=== PATIENT | female | born 1980 | race Caucasian/White ===

== ENCOUNTER 2017-07-18 21:51 | Emergency (ER) | payer OTHER ==
[2017-07-18 22:18] VITALS: RESP 18; TEMP 97.9
[2017-07-18 23:15] LABS: URINE BILIRUBIN NEGATIVE (NEGATIVE); URINE BLOOD NEGATIVE (NEGATIVE); URINE GLUCOSE (UA) NEGATIVE (NEGATIVE); URINE LEUKOCYTE ESTERASE NEGATIVE Leu/uL (NEGATIVE); URINE NITRATE NEGATIVE (NEGATIVE); URINE PROTEIN NEGATIVE mg/dL (<30 mg/dL); URINE UROBILINOGEN 0.2 E.U./dL (<1 E.U./dL)
[2017-07-18 23:17] LABS: HCG,QUALITATIVE URINE NEGATIVE (NEGATIVE); URINE APPEARANCE CLEAR (CLEAR); URINE COLOR YELLOW (YELLOW)
[2017-07-18 23:21] LABS: HEMOGLOBIN 12.5 g/dL (12.0-16.0); MEAN CELL VOLUME 91.1 fl (80.0-105.0); MEAN CORPUSCULAR HEMOGLOBIN 30.8 pg (25.0-35.0); MEAN CORPUSCULAR HGB CONC 33.8 g/dl (31.0-37.0); MEAN PLATELET VOLUME 9.8 fl (7.0-11.0); RBC 4.06 10^6/uL (3.5-6.1); RED CELL DISTRIBUTION WIDTH 12.7 % (11.5-14.5); WHITE BLOOD COUNT 8.8 10^3/ul (4.5-11.0)
[2017-07-18 23:22] LABS: ALB/GLOB RATIO 1.3 (1.1-1.8); ALBUMIN 4.1 g/dL (3.0-4.8); ALT/SGPT 28 U/L (7-56); AST/SGOT 23 U/L (14-36); BLOOD UREA NITROGEN 11 mg/dL (7-21); CALCIUM 9.4 mg/dL (8.4-10.5); GFR AFRICAN-AMERICAN > 60; GFR NON-AFRICAN AMERICAN > 60; LIPASE 75 U/L (23-300)
--- NOTE | 2017-07-18 23:23 | ED PDOC ---
Arrival/HPI - General Chief Complaint: Female Genitourinary Time Seen by Provider: 07/18/17 22:31 Historian: Patient - History of Present Illness Narrative History of Present Illness (Text): 07/18/17 22:45 37 year old female, whose past medical history includes ovarian cyst s/p ovarian cyst removal, cholecystectomy, and intestinal obstruction, presents to the emergency department complaining of"ovarian pain". Patient states she has been having this discomfort for the past 3 months. She reports her last menstrual period a week ago. Patient denies any fever, chills, chest pain, shortness of breath, nausea, vomiting, diarrhea, urinary symptoms, vaginal discharge, back pain, neck pain, headache, dizziness, or any other complaints. Time/Duration: Other (3 month ) Symptom Onset: Gradual Symptom Course: Worsening Activities at Onset: Light Context: Home Past Medical History - Provider Review Nursing Documentation Reviewed: Yes - Genitourinary/Gynecological Hx Ovarian Cancer: Yes - Psychiatric Hx Substance Use: No Family/Social History - Physician Review Nursing Documentation Reviewed: Yes Family/Social History: No Known Family HX Smoking Status: y Hx Alcohol Use: No Hx Substance Use: No Allergies/Home Meds Allergies/Adverse Reactions: Allergies No Known Allergies Allergy (Verified 07/18/17 22:18) Review of Systems - Physician Review All systems were reviewed & negative as marked: Yes - Review of Systems Constitutional: absent: Fevers, Other (Chills) Respiratory: absent: SOB Cardiovascular: absent: Chest Pain Gastrointestinal: absent: Diarrhea, Nausea, Vomiting Genitourinary Female: Other ("Ovarian Pain"). absent: Dysuria, Frequency, Hematuria, Vaginal Discharge Musculoskeletal: absent: Back Pain, Neck Pain Neurological: absent: Headache, Dizziness Physical Exam Vital Signs Reviewed: Yes Vital Signs Temp Pulse Resp BP Pulse Ox 07/18/17 22:13 97.9 F 62 18 144/80 99 Temperature: Afebrile Blood Pressure: Normal Pulse: Regular Respiratory Rate: Normal Appearance: Positive for: Well-Appearing, Non-Toxic, Comfortable Pain Distress: None Mental Status: Positive for: Alert and Oriented X 3 - Systems Exam Head: Present: Atraumatic, Normocephalic Pupils: Present: PERRL Extroacular Muscles: Present: EOMI Conjunctiva: Present: Normal Mouth: Present: Moist Mucous Membranes Neck: Present: Normal Range of Motion Respiratory/Chest: Present: Clear to Auscultation, Good Air Exchange. No: Respiratory Distress, Accessory Muscle Use Cardiovascular: Present: Regular Rate and Rhythm, Normal S1, S2. No: Murmurs Abdomen: Present: Normal Bowel Sounds. No: Tenderness, Distention, Peritoneal Signs Back: Present: Normal Inspection Upper Extremity: Present: Normal Inspection. No: Cyanosis, Edema Lower Extremity: Present: Normal Inspection. No: Edema Neurological: Present: GCS=15, CN II-XII Intact, Speech Normal Skin: Present: Warm, Dry, Normal Color. No: Rashes Psychiatric: Present: Alert, Oriented x 3, Normal Insight, Normal Concentration Medical Decision Making ED Course and Treatment: 07/18/17 22:45 Impression: 37 year old female presents complaining of "Ovarian pain". Pt past medical history includes ovarian cyst s/p ovarian cyst removal. Plan: -- Labs -- Toradol -- HCG Qualit, Urinalysis -- Transvaginal US -- Reassess and disposition Progress Notes: EXAM: US Pelvis Complete, Transabdominal Dictated and Authenticated by: Addy Mendieta MD 07/18/2017 11:48 PM IMPRESSION: 1. Right ovarian lesion, indeterminate. Recommend nonemergent MRI for further characterization - Lab Interpretations Lab Results: 07/18/17 23:00 07/18/17 23:00 Lab Results 07/18/17 23:00: WBC 8.8, RBC 4.06, Hgb 12.5, Hct 37.0, MCV 91.1, MCH 30.8, MCHC 33.8, RDW 12.7, Plt Count 232, MPV 9.8 07/18/17 23:00: Sodium 140, Potassium 4.2, Chloride 102, Carbon Dioxide 31, Anion Gap 12, BUN 11, Creatinine 0.6 L, Est GFR ( Amer) > 60, Est GFR ( Non-Af Amer) > 60, Random Glucose 106, Calcium 9.4, Total Bilirubin 0.4, AST 23 , ALT 28, Alkaline Phosphatase 90, Total Protein 7.2, Albumin 4.1, Globulin 3.1 , Albumin/Globulin Ratio 1.3, Lipase 75 07/18/17 23:00: Urine Color Yellow, Urine Appearance Clear, Urine pH 8.0, Ur Specific [place] 1.015, Urine Protein Negative, Urine Glucose (UA) Negative, Urine Ketones Negative, Urine Blood Negative, Urine Nitrate Negative, Urine Bilirubin Negative, Urine Urobilinogen 0.2, Ur Leukocyte Esterase Negative, Urine HCG, Qual Negative I have reviewed the lab results: Yes - RAD Interpretation Radiology Orders: 07/18/17 22:44 TRANSVAGINAL [US] Stat - Medication Orders Current Medication Orders: Discontinued Medications Ketorolac Tromethamine (Toradol) 30 mg IVP ONCE ONE Stop: 07/18/17 23:12 Last Admin: 07/18/17 23:32 Dose: 30 mg MAR Pain Assessment Document 07/18/17 23:32 CNR (Rec: 07/18/17 23:32 CNR [id number]) Pain Reassessment Is this a pain reassessment? Yes Location Upper or Lower Lower Pain Location Body Site Abdomen Description Description Constant IVP Administration Document 07/18/17 23:32 CNR (Rec: 07/18/17 23:32 CNR [id number]) Charges for Administration # of IVP Administrations 1 Morphine Sulfate (Morphine) 4 mg IVP STAT STA Stop: 07/19/17 02:06 Last Admin: 07/19/17 02:11 Dose: 4 mg MAR Pain Assessment Document 07/19/17 02:11 CNR (Rec: 07/19/17 02:12 CNR [id number]) Pain Reassessment Is this a pain reassessment? Yes IVP Administration Document 07/19/17 02:11 CNR (Rec: 07/19/17 02:12 CNR [id number]) Charges for Administration # of IVP Administrations 1 - Scribe Statement The provider has reviewed the documentation as recorded by the Sheela Garzon Provider Scribe Attestation: All medical record entries made by the Scribmario were at my direction and personally dictated by me. I have reviewed the chart and agree that the record accurately reflects my personal performance of the history, physical exam, medical decision making, and the department course for this patient. I have also personally directed, reviewed, and agree with the discharge instructions and disposition. Disposition/Present on Arrival - Present on Arrival Any Indicators Present on Arrival: No History of DVT/PE: No History of Uncontrolled Diabetes: No Urinary Catheter: No History of Decub. 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 Prescriptions: Tramadol HCl [Ultram] 50 mg PO Q6 PRN #12 tab PRN Reason: Pain, Moderate (4-7) Referrals: Karen Prater MD [Staff Provider] - Follow up with primary Forms: [employer] ([employer])
--- NOTE | 2017-07-18 23:48 | US ---
EXAM: US Pelvis Complete, Transabdominal CLINICAL HISTORY: 37 years old, female; Pain; Pelvic pain TECHNIQUE: Real-time transabdominal pelvic ultrasound (complete) with image documentation. COMPARISON: No relevant prior studies available. FINDINGS: Uterus/cervix: Uterus measures 9.3 x 4.5 x 5.5 cm in size. No myometrial mass. Endometrium: 0.5 cm in thickness. Right ovary: 5.6 x 4.7 x 2.7 cm in size. 4.2 x 3.8 x 3.9 cm hypo to isoechoic lesion. Small follicles. Normal flow. Left ovary: 2.7 x 1.4 x 2.4 cm in size. No mass. Small follicles. Normal flow. Free fluid: No significant free fluid. Bladder: Unremarkable as visualized. IMPRESSION: 1. Right ovarian lesion, indeterminate. Recommend nonemergent MRI for further characterization. EXAM: US Pelvis, Transvaginal CLINICAL HISTORY: 37 years old, female; Pain; Pelvic pain TECHNIQUE: Real-time transvaginal pelvic ultrasound (complete) with image documentation. Transvaginal imaging was used for better evaluation of the endometrium and adnexa. COMPARISON: No relevant prior studies available. FINDINGS: Uterus/cervix: Uterus measures 9.3 x 4.5 x 5.5 cm in size. No myometrial mass. Endometrium: 0.5 cm in thickness. Right ovary: 5.6 x 4.7 x 2.7 cm in size. 4.2 x 3.8 x 3.9 cm hypo to isoechoic lesion. Small follicles. Normal flow. Left ovary: 2.7 x 1.4 x 2.4 cm in size. No mass. Small follicles. Normal flow. Free fluid: No significant free fluid. Bladder: Empty bladder which cannot be evaluated with this probe.
[2017-07-19] MEDS ORDERED: Morphine 4 mg/ml ISec IVP STA (02:05)
[2017-07-19 02:45] VITALS: BP 121/73; PULSE 88; O2SAT 100
== END 2017-07-19 03:36 | disposition home or self-care (01) ==
LOC: MERGE 21:51 → ED 21:51
DX: N83.201 Unspecified ovarian cyst, right side (principal); Z90.49 Acquired absence of other specified parts of digestive tract
CPT/HCPCS: 76830; 80053; 81003; 83690; 84703; 85027; 96374; 96375; 99284; J1885; J2270

== ENCOUNTER 2017-11-14 17:52 | Emergency (ER) | payer MEDICAID, OTHER ==
[2017-11-14 18:12] VITALS: BMI 31.1
--- NOTE | 2017-11-14 19:53 | ED PDOC ---
Arrival/HPI - General Historian: Patient - History of Present Illness Time/Duration: 1 hour <Doreen Quiroz - Last Filed: 11/14/17 20:35> <Brandan Small - Last Filed: 11/14/17 22:29> <Chito Cummins - Last Filed: 11/15/17 00:47> - General Chief Complaint: Psychiatric Evaluation Time Seen by Provider: 11/14/17 18:39 - History of Present Illness Narrative History of Present Illness (Text): 11/14/17 19:50 37-year-old female with a history of bipolar disorder presents today with depression and suicidal ideation. Patient states she is supposed to be taking Prozac which she only takes it some time is because it makes her feel like a zombie. Patient states she's been feeling more and more depressed lately and has been feeling overwhelmed. Patient states today she snorted fentanyl in an attempt to go to sleep and not wake up. Patient denies headaches dizziness or weakness. Denies chest pain or shortness of breath. Patient states she was feeling nauseous when she woke up after snoring the fentanyl but feels okay now. patient states she has a history of suicide attempt in the past with tramadol. (Doreen Quiroz) Past Medical History - Provider Review Nursing Documentation Reviewed: Yes - Travel History Have you recently traveled outside [place] w/in the past 3 mons?: No - Cardiac Hx Cardiac Disorders: No - Pulmonary Hx Respiratory Disorders: No - Neurological Hx Neurological Disorder: No - HEENT Hx HEENT Disorder: No - Renal Hx Renal Disorder: No - Endocrine/Metabolic Hx Endocrine Disorders: No - Hematological/Oncological Hx Blood Disorders: No - Integumentary Hx Dermatological Disorder: No - Musculoskeletal/Rheumatological Hx Musculoskeletal Disorders: No - Gastrointestinal Hx Gastrointestinal Disorders: No - Genitourinary/Gynecological Other/Comment: ovarian cysts - Psychiatric Hx Psychophysiologic Disorder: Yes Hx Anxiety: Yes Hx Depression: Yes Hx Substance Use: Yes Other/Comment: substance abuse - Surgical History Hx Section: Yes Hx Cholecystectomy: Yes Other/Comment: right cyst removal - Anesthesia Hx Anesthesia: Yes <Doreen Quiroz - Last Filed: 11/14/17 20:35> Family/Social History - Physician Review Nursing Documentation Reviewed: Yes Family/Social History: Unknown Family HX Smoking Status: Heavy Smoker > 10 Cigarettes Daily Hx Alcohol Use: No Hx Substance Use: Yes <Doreen Quiroz - Last Filed: 11/14/17 20:35> Allergies/Home Meds <Doreen Quiroz - Last Filed: 11/14/17 20:35> <Brandan Small - Last Filed: 11/14/17 22:29> <Chito Cummins - Last Filed: 11/15/17 00:47> Allergies/Adverse Reactions: Allergies No Known Allergies Allergy (Verified 07/18/17 22:18) Review of Systems - Review of Systems Constitutional: absent: Fatigue, Fevers Respiratory: absent: SOB, Cough Cardiovascular: absent: Chest Pain, Palpitations Gastrointestinal: Nausea (resolved). absent: Abdominal Pain, Vomiting Musculoskeletal: absent: Back Pain, Neck Pain Skin: absent: Rash, Pruritis Neurological: absent: Headache, Dizziness Psychiatric: absent: Anxiety, Depression <Doreen Quiroz - Last Filed: 11/14/17 20:35> Physical Exam Vital Signs Reviewed: Yes Temperature: Afebrile Blood Pressure: Normal Pulse: Regular Respiratory Rate: Normal Appearance: Positive for: Well-Appearing, Non-Toxic, Comfortable Pain Distress: None Mental Status: Positive for: Alert and Oriented X 3 - Systems Exam Head: Present: Atraumatic Pupils: Present: PERRL Extroacular Muscles: Present: EOMI Conjunctiva: Present: Normal Ears: Present: Normal Mouth: Present: Moist Mucous Membranes Neck: Present: Normal Range of Motion Respiratory/Chest: Present: Clear to Auscultation, Good Air Exchange. No: Respiratory Distress, Accessory Muscle Use Cardiovascular: Present: Regular Rate and Rhythm, Normal S1, S2. No: Murmurs Abdomen: No: Tenderness, Rebound, Guarding Back: Present: Normal Inspection Upper Extremity: Present: Normal ROM Lower Extremity: Present: Normal ROM Neurological: Present: GCS=15, Speech Normal Skin: Present: Warm, Dry, Normal Color. No: Rashes Psychiatric: Present: Alert, Oriented x 3 <Doreen Quiroz Sis - Last Filed: 11/14/17 20:35> Vital Signs Temp Pulse Resp BP Pulse Ox 11/15/17 00:27 98.2 F 88 16 122/62 100 11/14/17 21:18 98.4 F 84 18 124/56 L 99 11/14/17 18:13 98.3 F 93 H 17 130/60 97 Medical Decision Making <Doreen Quiroz - Last Filed: 11/14/17 20:35> <Brandan Small - Last Filed: 11/14/17 22:29> <Chito Cummins - Last Filed: 11/15/17 00:47> ED Course and Treatment: 11/14/17 19:53 Patient is nontoxic well-appearing in no distress vital signs are stable. pt placed on 1:1 for SI precaution CBC: wbc; 15.5 CMP: wnl Tylenol: wnl Salicylate: wnl Alcohol level: wnl Urine drug screen: Pending UA; WNL cxr: wnl - reviewed by dr. small ekg normal sinus rhythm with sinus arrhythmia at 85 bpm normal axis normal intervals no ST elevations pt with non specific leukocytosis; pt without signs/symptoms of infection; pt alert and oriented in no distress. pt is medically cleared for PES evaluation, PES admission/transfer. Patient was seen and evaluated by PES screener; no beds in [facility] will transfer patient; pending Access accepting facility and accepting physician. Impression; depression, leukocytosis 11/14/17 20:32 case signed out to dr. Small pending urine drug screen and accepting facility and physician. (Doreen Quiroz) 11/14/17 22:30 patient is medically stable for psychiatric evaluation, admission, transfer if needed. patient has a pending urine drug screen, however it bears no clinical significance to current ED management. case endorsed to dr. cummins for follow up disposition. 11/14/17 22:32 (Brandan Small) - Lab Interpretations Lab Results: 11/14/17 19:56 11/14/17 19:56 Lab Results 11/14/17 22:40: Urine Opiates Screen Negative, Urine Methadone Screen Negative, Ur Barbiturates Screen Negative, Ur Phencyclidine Scrn Negative, Ur Amphetamines Screen Negative, U Benzodiazepines Scrn Negative, U Oth Cocaine Metabols Negative, U Cannabinoids Screen Negative 11/14/17 20:21: Urine Color Yellow, Urine Appearance Clear, Urine pH 6.0, Ur Specific [place] >= 1.030, Urine Protein 30 H, Urine Glucose (UA) 500 H, Urine Ketones Negative, Urine Blood Negative, Urine Nitrate Negative, Urine Bilirubin Negative, Urine Urobilinogen 0.2, Ur Leukocyte Esterase Negative, Urine RBC 0 - 2, Urine WBC 0 - 2, Ur Epithelial Cells 3 - 4, Urine Bacteria Few 11/14/17 19:56: Alcohol, Quantitative < 10 11/14/17 19:56: Salicylates < 1 L, Acetaminophen < 10.0 L 11/14/17 19:56: Sodium 140, Potassium 4.8, Chloride 103, Carbon Dioxide 26, Anion Gap 16, BUN 9, Creatinine 0.6 L, Est GFR ( Amer) > 60, Est GFR (Non -Af Amer) > 60, Random Glucose 88, Calcium 8.7, Total Bilirubin 0.5, AST 34, ALT 38, Alkaline Phosphatase 111, Total Protein 7.5, Albumin 4.4, Globulin 3.1, Albumin/Globulin Ratio 1.4 11/14/17 19:56: WBC 15.5 H D, RBC 4.36, Hgb 12.8, Hct 37.5, MCV 86.0 D, MCH 29.4, MCHC 34.1, RDW 13.8, Plt Count 201, MPV 9.6, Gran % 91.1 H, Lymph % (Auto ) 4.6 L, [place] % (Auto) 4.1, Eos % (Auto) 0.1 L, Baso % (Auto) 0.1, Gran # 14.16 H, Lymph # (Auto) 0.7 L, [place] # (Auto) 0.6, Eos # (Auto) 0.0, Baso # (Auto) 0.01 , Neutrophils % (Manual) 86 H, Lymphocytes % (Manual) 7 L, Monocytes % (Manual) 7 H - RAD Interpretation Radiology Orders: 11/14/17 18:51 CHEST PORTABLE [RAD] Stat - Medication Orders Current Medication Orders: Discontinued Medications Famotidine (Pepcid) 20 mg PO STAT STA Stop: 11/14/17 20:18 Last Admin: 11/14/17 21:15 Dose: 20 mg Ondansetron HCl (Zofran Odt) 4 mg PO STAT STA Stop: 11/14/17 21:27 Last Admin: 11/14/17 21:27 Dose: 4 mg - Scribe Statement The provider has reviewed the documentation as recorded by the Scribe <Chito Cummins - Last Filed: 11/15/17 00:47> Disposition/Present on Arrival - Present on Arrival Any Indicators Present on Arrival: No History of DVT/PE: No History of Uncontrolled Diabetes: No Urinary Catheter: No History of Decub. Ulcer: No History Surgical Site Infection Following: None - Disposition Have Diagnosis and Disposition been Completed?: Yes Disposition Time: 19:54 <Doreen Quiroz - Last Filed: 11/14/17 20:35> <Brandan Small - Last Filed: 11/14/17 22:29> - Present on Arrival Any Indicators Present on Arrival: No History of DVT/PE: No History of Uncontrolled Diabetes: No Urinary Catheter: No History of Decub. Ulcer: No History Surgical Site Infection Following: None - Disposition Disposition Time: 00:36 Patient Plan: Transfer To ([facility] ACCEPTING) <Chito Cummins - Last Filed: 11/15/17 00:47> - Disposition Diagnosis: Depression, Leukocytosis Patient Problems: Current Active Problems Problem Status Onset Depression Acute Leukocytosis Acute Condition: FAIR Discharge Instructions (ExitCare): Screening for Depression Forms: [employer] (Chinese)
[2017-11-14 20:09] LABS: BASO # 0.01 K/mm3 (0.0-2.0); BASO % 0.1 % (0.0-3.0); EOS % 0.1 % (1.5-5.0); GRAN # 14.16 (1.4-6.5); GRAN % 91.1 % (50.0-68.0); HEMOGLOBIN 12.8 g/dL (12.0-16.0); LYMPH # 0.7 (1.2-3.4); LYMPH % 4.6 % (22.0-35.0); MEAN CORPUSCULAR HEMOGLOBIN 29.4 pg (25.0-35.0); MEAN CORPUSCULAR HGB CONC 34.1 g/dl (31.0-37.0); MEAN PLATELET VOLUME 9.6 fl (7.0-11.0); MONO # 0.6 (0.1-0.6); MONO % 4.1 % (1.0-6.0); PLATELET COUNT 201 10^3/uL (120.0-450.0); RBC 4.36 10^6/uL (3.5-6.1); RED CELL DISTRIBUTION WIDTH 13.8 % (11.5-14.5); WHITE BLOOD COUNT 15.5 10^3/ul (4.5-11.0)
[2017-11-14 20:14] LABS: ACETAMINOPHEN < 10.0 ug/ml (10.0-20.0); SALICYLATE < 1 mg/dL (2.0-20.0)
[2017-11-14 20:15] LABS: ALB/GLOB RATIO 1.4 (1.1-1.8); ALBUMIN 4.4 g/dL (3.0-4.8); ALT/SGPT 38 U/L (7-56); AST/SGOT 34 U/L (14-36); BLOOD UREA NITROGEN 9 mg/dL (7-21); CALCIUM 8.7 mg/dL (8.4-10.5); GFR NON-AFRICAN AMERICAN > 60
[2017-11-14 20:24] LABS: URINE BILIRUBIN NEGATIVE (NEGATIVE); URINE BLOOD NEGATIVE (NEGATIVE); URINE GLUCOSE (UA) 500 mg/dL (NEGATIVE); URINE LEUKOCYTE ESTERASE NEGATIVE Leu/uL (NEGATIVE); URINE PROTEIN 30 mg/dL (<30 mg/dL); URINE UROBILINOGEN 0.2 E.U./dL (<1 E.U./dL)
[2017-11-14 20:26] LABS: URINE APPEARANCE CLEAR (CLEAR); URINE COLOR YELLOW (YELLOW)
[2017-11-14 20:28] LABS: URINE RBC 0 - 2 /hpf (0-2); URINE WBC 0 - 2 /hpf (0-6)
[2017-11-14 20:29] LABS: URINE BACTERIA FEW (NEG)
[2017-11-14 20:49] LABS: LYMPHOCYTE 7 % (22.0-35.0); MONOCYTE 7 % (1.0-6.0); NEUTROPHIL 86 % (50.0-70.0)
[2017-11-14 23:14] LABS: OPIATES, UR NEGATIVE (NEGATIVE)
[2017-11-14 23:15] LABS: BARBITURATES, UR NEGATIVE (NEGATIVE); BENZODIAZEPINES, UR NEGATIVE (NEGATIVE); PHENCYCLIDINE, UR NEGATIVE (NEGATIVE)
[2017-11-15 00:28] VITALS: BP 122/62; PULSE 88; RESP 16; TEMP 98.2; O2SAT 100
--- NOTE | 2017-11-15 08:53 | RAD ---
HISTORY: PES eval COMPARISON: No prior. FINDINGS: LUNGS: The lungs are well inflated and clear. PLEURA: No significant pleural effusion identified, no pneumothorax apparent. CARDIOVASCULAR: Normal. OSSEOUS STRUCTURES: No significant abnormalities. VISUALIZED UPPER ABDOMEN: Normal. OTHER FINDINGS: None. IMPRESSION: No active pulmonary disease.
--- NOTE | 2017-11-15 22:59 | CARD ---
APPROVED REPORT EKG Measurement Heart [id number] ID [id number] <Conclusion> Normal sinus rhythm with sinus arrhythmia Normal ECG
== END 2017-11-15 01:40 | disposition short-term general hospital (02) ==
LOC: ED 17:52
DX: F32.9 Major depressive disorder, single episode, unspecified (principal); D72.829 Elevated white blood cell count, unspecified; F17.210 Nicotine dependence, cigarettes, uncomplicated

== ENCOUNTER 2018-07-13 15:19 | Emergency (ER) | payer MEDICAID, OTHER ==
[2018-07-13 16:07] VITALS: BMI 31.8
[2018-07-13] MEDS ORDERED: Sodium Chloride 0.9% 1,000 ML IV STA (16:40)
--- NOTE | 2018-07-13 17:11 | ED PDOC ---
Arrival/HPI - General Chief Complaint: Abdominal Pain Historian: Patient - History of Present Illness Narrative History of Present Illness (Text): 07/13/18 17:07 38 y/o F, whose past medical history includes ovarian cyst s/p ovarian cyst removal, cholecystectomy, and intestinal obstruction, presents to the emergency department complaining of suprapubic abdominal pain since past 2 days. Patient informs radiation of pain to the right side of her abdomen, consistent with symptoms of ovarian cyst in the past. Patient reports an episode of vomiting with initial onset of symptoms but none currently. Patient denies any other associated somatic complaints. Patient denies any fevers, chills, headache, dizziness, chest pain, shortness of breath, dyspnea on exertion, cough, nausea, vomiting, diarrhea, back pain, urinary symptoms, abnormal vaginal discharge, neck pain, or any other complaints. Patient states she is currently on her menstrual cycle. Time/Duration: < week Symptom Onset: Gradual Symptom Course: Unchanged Activities at Onset: Light Context: Home Past Medical History - Provider Review Nursing Documentation Reviewed: Yes - Cardiac Hx Cardiac Disorders: No Hx Hypertension: No - Pulmonary Hx Respiratory Disorders: No - Neurological Hx Neurological Disorder: No Hx Seizures: No - HEENT Hx HEENT Disorder: No - Renal Hx Renal Disorder: No - Endocrine/Metabolic Hx Endocrine Disorders: No - Hematological/Oncological Hx Blood Disorders: No - Integumentary Hx Dermatological Disorder: No - Musculoskeletal/Rheumatological Hx Musculoskeletal Disorders: No - Gastrointestinal Hx Gastrointestinal Disorders: No - Genitourinary/Gynecological Hx Genitourinary Disorders: No Hx Sexually Transmitted Diseases: No - Psychiatric Hx Bipolar Disorder: Yes Hx Depression: Yes Hx Substance Use: Yes - Surgical History Hx Section: Yes (2X) Hx Cholecystectomy: Yes - Anesthesia Hx Anesthesia: Yes Hx Anesthesia Reactions: No Hx Malignant Hyperthermia: No Family/Social History - Physician Review Nursing Documentation Reviewed: Yes Family/Social History: Unknown Family HX Smoking Status: y Hx Alcohol Use: No Hx Substance Use: Yes Allergies/Home Meds Allergies/Adverse Reactions: Allergies No Known Allergies Allergy (Verified 07/18/17 22:18) Review of Systems - Physician Review All systems were reviewed & negative as marked: Yes - Review of Systems Constitutional: absent: Fevers Respiratory: absent: SOB, Cough Cardiovascular: absent: Chest Pain Gastrointestinal: Abdominal Pain. absent: Diarrhea, Nausea, Vomiting Genitourinary Female: absent: Dysuria, Urine Output Changes Musculoskeletal: absent: Back Pain, Neck Pain Skin: absent: Rash Neurological: absent: Headache, Dizziness Endocrine: absent: Diaphoresis Psychiatric: absent: Anxiety Physical Exam Appearance: Positive for: Well-Appearing, Non-Toxic, Comfortable Pain Distress: None Mental Status: Positive for: Alert and Oriented X 3 - Systems Exam Head: Present: Atraumatic, Normocephalic Pupils: Present: PERRL Extroacular Muscles: Present: EOMI Conjunctiva: Present: Normal Respiratory/Chest: Present: Clear to Auscultation, Good Air Exchange. No: Respiratory Distress, Accessory Muscle Use Cardiovascular: Present: Regular Rate and Rhythm, Normal S1, S2. No: Murmurs Abdomen: Present: Tenderness (suprapubic and right lower quadrant tenderness). No: Distention, Peritoneal Signs Upper Extremity: Present: Normal Inspection. No: Cyanosis, Edema Lower Extremity: Present: Normal Inspection. No: Edema Neurological: Present: GCS=15, CN II-XII Intact, Speech Normal Skin: Present: Warm, Dry, Normal Color. No: Rashes Psychiatric: Present: Alert, Oriented x 3, Normal Insight, Normal Concentration Medical Decision Making ED Course and Treatment: 07/13/18 17:13 Impression: 38 year old female presents to the Ed for evaluation of suprapubic abdominal p ain. Differential Diagnosis included but are not limited to: -- Ovarian Cyst -- Premenstrual Sign -- Pyelonephritis -- Nephritis Plan: -- Labs -- EKG -- Reglan -- IV Fluids -- Toradol -- Urinalysis -- Pelvis US -- Reassess and disposition Prior Visits: Notes and results from previous visits were reviewed. Progress Notes: - Lab Interpretations Lab Results: 07/13/18 17:09 07/13/18 17:09 Lab Results 07/13/18 17:09: Sodium 136, Potassium 4.2, Chloride 102, Carbon Dioxide 25, Anion Gap 12, BUN 10, Creatinine 0.6 L, Est GFR ( Amer) > 60, Est GFR (Non-Af Amer) > 60, Random Glucose 93, Calcium 9.2, Magnesium 1.8, Total Biliru bin 1.1, AST 19, ALT 8, Alkaline Phosphatase 87, Total Protein 7.3, Albumin 4.0, Globulin 3.3, Albumin/Globulin Ratio 1.2, Lipase 13 L 07/13/18 17:09: Urine Color Dark yellow, Urine Appearance Clear, Urine pH 7.0, Ur Specific [place] 1.020, Urine Protein Negative, Urine Glucose (UA) Negative, Urine Ketones >=80, Urine Blood Moderate H, Urine Nitrate Negative, Urine Bilirubin Small H, Urine Urobilinogen 4.0 H, Ur Leukocyte Esterase Negative, Urine RBC 2 - 5 H, Urine WBC 0 - 2, Ur Epithelial Cells 1 - 3, Urine Bacteria Trace 07/13/18 17:09: PT 13.8 H, INR 1.24, APTT 31.0 07/13/18 17:09: WBC 13.2 H, RBC 4.15, Hgb 12.5, Hct 37.1, MCV 89.4 D, MCH 30.1, MCHC 33.7, RDW 13.5, Plt Count 196, MPV 9.6, Neut % (Auto) 88.4 H, Lymph % (Auto) 5.5 L, [place] % (Auto) 5.8, Eos % (Auto) 0.2 L, Baso % (Auto) 0.1, Lymph # (Auto) 0.7 L, [place] # (Auto) 0.8 H, Eos # (Auto) 0.0, Baso # (Auto) 0.01, Absolute Neuts (auto) 11.67 H I have reviewed the lab results: Yes - RAD Interpretation Narrative RAD Interpretations (Text): 07/13/18 19:24 Transvaginal US reviewed, shows: FINDINGS: UTERUS: Measures 4.7 x 9.3 cm. Normal in size and appearance. No fibroid or other mass l esion seen.Incidental finding(s): Cystic lesion sub serosal anterior portion of the uterus measuring 6 mm. ENDOMETRIUM: Measures 5.2 mm in diameter. No ultrasound findings to suggest gestational sac, fluid, debris, mass or polyp or other pathologic process within the endometrium. CERVIX: No cervical abnormality identified. RIGHT OVARY: Measures 2.6 x 3.3 x 3.8 cm. No solid mass. Normal flow. Multiple subcentimeter follicles. LEFT OVARY: Measures 3 x 3.9 x 4.5 cm. Solid mass with variable echo characteristics occupying most of the left adnexa. The finding was not apparent previously. Differential considerations include a complex cyst, germ cell tumors. It is less likely this represents a dermoid, there is nothing on the prior study 2 years ago to suggest even in retrospect dermoid type tumor. Normal flow. FREE FLUID: No significant free fluid noted. OTHER FINDINGS: None. IMPRESSION: Solid mass replacing the entire left adnexa a new finding compared to the prior study. Germ-cell tumor/teratoma should be considered. Radiology Orders: 07/13/18 16:53 PELVIS ULTRASOUND [US] Routine Internet Marketing Strategist: Radiologist - EKG Interpretation EKG Interpretation (Text): 07/13/18 16:48 EKG reviewed, shows NSR @ 86 bpm, No ST elevations, No QT prolongation. Interpreted by ED Physician: Yes Type: 12 lead EKG - Medication Orders Current Medication Orders: Sodium Chloride (Sodium Chloride 0.9%) 1,000 mls @ 999 mls/hr IV .Q1H1M STA Stop: 07/13/18 17:40 Discontinued Medications Ketorolac Tromethamine (Toradol) 30 mg IVP STAT STA Stop: 07/13/18 16:55 Metoclopramide HCl (Reglan) 10 mg IVP STAT STA Stop: 07/13/18 16:41 - Scribe Statement The provider has reviewed the documentation as recorded by the Scribe Jonah Duncan. All medical record entries made by the Scribe were at my direction and personally dictated by me. I have reviewed the chart and agree that the record accurately reflects my personal performance of the history, physical exam, medical decision making, and the department course for this patient. I have also personally directed, reviewed, and agree with the discharge instructions and disposition. Disposition/Present on Arrival - Present on Arrival Any Indicators Present on Arrival: No History of DVT/PE: No History of Uncontrolled Diabetes: No Urinary Catheter: No History of Decub. Ulcer: No History Surgical Site Infection Following: None - Disposition Have Diagnosis and Disposition been Completed?: Yes Diagnosis: Adnexal mass Disposition: HOME/ ROUTINE Disposition Time: 19:15 Patient Plan: Discharge Patient Problems: Current Active Problems Problem Status Onset Adnexal mass Acute Condition: STABLE Discharge Instructions (ExitCare): Ovarian Cysts Print Language: MONTENEGRIN Additional Instructions: All medical record entries made by the Scribe were at my direction and personally dictated by me. I have reviewed the chart and agree that the record accurately reflects my personal performance of the history, physical exam, medical decision making, and the department course for this patient. I have also personally directed, reviewed, and agree with the discharge instructions and disposition. Please follow up with the [facility] as soon as possible and bring the results of the US with you Prescriptions: Naproxen [Naprosyn Tab] 250 mg PO Q6H #12 tab Referrals: Pankaj Sun MD [Staff Provider] - Follow up with primary Rickey Merchant MD [Medical Doctor] - Follow up with primary Forms: [facility] (Bulgarian), WORK NOTE
[2018-07-13 17:14] LABS: BASO # 0.01 K/mm3 (0.0-2.0); BASO % 0.1 % (0.0-3.0); EOS % 0.2 % (1.5-5.0); HEMOGLOBIN 12.5 g/dL (12.0-16.0); LYMPH # 0.7 (1.2-3.4); LYMPH % 5.5 % (22.0-35.0); MEAN CELL VOLUME 89.4 fl (80.0-105.0); MEAN CORPUSCULAR HEMOGLOBIN 30.1 pg (25.0-35.0); MEAN CORPUSCULAR HGB CONC 33.7 g/dl (31.0-37.0); MEAN PLATELET VOLUME 9.6 fl (7.0-11.0); MONO # 0.8 (0.1-0.6); MONO % 5.8 % (1.0-6.0); RBC 4.15 10^6/uL (3.5-6.1); RED CELL DISTRIBUTION WIDTH 13.5 % (11.5-14.5); WHITE BLOOD COUNT 13.2 10^3/uL (4.5-11.0)
[2018-07-13 17:16] LABS: URINE APPEARANCE CLEAR (CLEAR); URINE BILIRUBIN SMALL (NEGATIVE); URINE BLOOD MODERATE (NEGATIVE); URINE COLOR DARK YELLOW (YELLOW); URINE GLUCOSE (UA) NEGATIVE (NEGATIVE); URINE LEUKOCYTE ESTERASE NEGATIVE Leu/uL (NEGATIVE); URINE PROTEIN NEGATIVE mg/dL (<30 mg/dL)
[2018-07-13 17:20] LABS: URINE WBC 0 - 2 /hpf (0-6)
[2018-07-13 17:21] LABS: URINE BACTERIA TRACE /hpf
[2018-07-13 17:22] LABS: INR 1.24; PROTHROMBIN TIME 13.8 SECONDS (9.4-12.5)
[2018-07-13 17:27] LABS: ALB/GLOB RATIO 1.2 (1.1-1.8); ALT/SGPT 8 U/L (7-56); AST/SGOT 19 U/L (14-36); BLOOD UREA NITROGEN 10 mg/dL (7-21); CALCIUM 9.2 mg/dL (8.4-10.5); GFR NON-AFRICAN AMERICAN > 60; LIPASE 13 U/L (23-300)
[2018-07-13] MEDS ORDERED: Morphine 4 mg/ml ISec IVP STA ×2 (18:45→19:05)
--- NOTE | 2018-07-13 18:55 | US ---
Date of service: 07/13/2018 HISTORY: Pelvic pain Menstrual status: Currently menstruating. COMPARISON: 07/18/2017. Pelvic ultrasound TECHNIQUE: Transvaginal only. Real -time technique with 2D, duplex and color Doppler FINDINGS: UTERUS: Measures 4.7 x 9.3 cm. Normal in size and appearance. No fibroid or other mass lesion seen.Incidental finding(s): Cystic lesion sub serosal anterior portion of the uterus measuring 6 mm. ENDOMETRIUM: Measures 5.2 mm in diameter. No ultrasound findings to suggest gestational sac, fluid, debris, mass or polyp or other pathologic process within the endometrium. CERVIX: No cervical abnormality identified. RIGHT OVARY: Measures 2.6 x 3.3 x 3.8 cm. No solid mass. Normal flow. Multiple subcentimeter follicles. LEFT OVARY: Measures 3 x 3.9 x 4.5 cm. Solid mass with variable echo characteristics occupying most of the left adnexa. The finding was not apparent previously. Differential considerations include a complex cyst, germ cell tumors. It is less likely this represents a dermoid, there is nothing on the prior study 2 years ago to suggest even in retrospect dermoid type tumor. Normal flow. FREE FLUID: No significant free fluid noted. OTHER FINDINGS: None. IMPRESSION: Solid mass replacing the entire left adnexa a new finding compared to the prior study. Germ-cell tumor/teratoma should be considered.
[2018-07-13 19:17] VITALS: BP 123/83; PULSE 85; RESP 17; O2SAT 97
--- NOTE | 2018-07-13 23:07 | CARD ---
APPROVED REPORT Date of service: 07/13/2018 EKG Measurement Heart [id number] <Conclusion> Normal sinus rhythm Nonspecific T wave abnormality Abnormal ECG
== END 2018-07-13 20:20 | disposition home or self-care (01) ==
LOC: ED 15:19
DX: R19.09 Other intra-abdominal and pelvic swelling, mass and lump (principal); Z90.49 Acquired absence of other specified parts of digestive tract
CPT/HCPCS: 76830; 80053; 81001; 81025; 83690; 83735; 85025; 85610; 85730; 93005; 96374; 96375; 99283; J1885; J2270; J2765; J7030